=== PATIENT | female | born 1960 ===

== ENCOUNTER 2018-08-03 15:20 | Emergency (ER) | payer SELFPAY ==
[2018-08-03] MEDS ORDERED: Sodium Chloride 0.9% 1,000 ML IV ONE (15:50)
[2018-08-03] MEDS ORDERED: LORazepam 2 MG/ML SDV IVPUSH ONE (16:35)
[2018-08-03 16:43] LABS: CHLORIDE,CL 104 mmol/L (98-107); SODIUM,NA 140 mmol/L (136-145)
[2018-08-03] MEDS: diphenhydrAMINE 50 MG/ML SDV IVPUSH ONE ×2 (16:50→16:54)
[2018-08-03] MEDS ORDERED: Ketorolac 30 MG/ML SDV IVPUSH ONE (17:37)
[2018-08-03] MEDS ORDERED: Ondansetron 4 MG/2 ML SDV IVPUSH ONE (17:37)
[2018-08-03] MEDS ORDERED: Meperidine PF 25 MG/ML Syringe IVPUSH ONE (18:26)
--- NOTE | 2018-08-03 18:26 | EDM.PDOC ---
ED HPI GENERAL MEDICAL PROBLEM - General Chief Complaint: Cardiovascular Problem Stated Complaint: PAT CAME FROM CLINIC Time Seen by Provider: 08/03/18 18:24 Source of Information: Reports: Patient - History of Present Illness INITIAL COMMENTS - FREE TEXT/NARRATIVE: HISTORY AND PHYSICAL: History of present illness: []Patient presents with headache, she is post steroid injection for disc bulge in her neck yesterday she presents from the clinic as such She has a history of migraine she has no fever some mild nausea no vomiting chills sweats light and noise sensitivity 10 out of 10 headache diffuse nonradiating, on exam headache improved somewhat with palpation of neck she has no neck stiffness or meningeal signs no fever Review of systems: As per history of present illness and below otherwise all systems reviewed and negative. Past medical history: As per history of present illness and as reviewed below otherwise noncontributory. Surgical history: As per history of present illness and as reviewed below otherwise noncontributory. Social history: No reported history of drug or alcohol abuse. Family history: As per history of present illness and as reviewed below otherwise noncontributory. Physical exam: HEENT: Atraumatic, normocephalic, pupils reactive, negative for conjunctival pallor or scleral icterus, mucous membranes moist, throat clear, neck supple, nontender, trachea midline. No meningeal signs injection sites are not notable on the neck there is no redness warmth or open lesion and is normal appearing and nontender Lungs: Clear to auscultation, breath sounds equal bilaterally, chest nontender. Heart: S1S2, regular, negative for clicks, rubs, or JVD. Abdomen: Soft, nondistended, nontender. Negative for masses or hepatosplenomegaly. Negative for costovertebral tenderness. Pelvis: Stable nontender. Genitourinary: Deferred. Rectal: Deferred. Extremities: Atraumatic, negative for cords or calf pain. Neurovascular unremarkable. Neuro: Awake, alert, oriented. Cranial nerves II through XII unremarkable. Cerebellum unremarkable. Motor and sensory unremarkable throughout. Exam nonfocal. Diagnostics: [TBC CMP head CT no contrast UA] Therapeutics: [1 L normal saline bolus Toradol 30 mg IV Zofran 8 mg IV Ativan 1 mg IV ] declines Benadryl as she has a history of recurrent restless leg syndrome Demerol 25 mg IV Impression: [ headache ] Definitive disposition and diagnosis as appropriate pending reevaluation and review of above. right side of head Pain Score (Numeric/FACES): 10 - Related Data Allergies Allergy/AdvReac Type Severity Reaction Status Date / Time No Known Allergies Allergy Verified 08/03/18 15:33 Past Medical History - Past Surgical History Endocrine Surgical History: Reports: Other (See Below) Other Endocrine Surgeries/Procedures: thyroid tumor Musculoskeletal Surgical History: Reports: Other (See Below) Other Musculoskeletal Surgeries/Procedures:: wrist surgery-L, ankle ligament repair, lumbar fusion, spinal cord stimulator implant Social & Family History - Family History Family Medical History: Noncontributory - Tobacco Use Smoking Status *Q: Never Smoker Second Hand Smoke Exposure: No - Caffeine Use Caffeine Use: Reports: Soda - Recreational Drug Use Recreational Drug Use: No ED ROS GENERAL - Review of Systems Review Of Systems: See Below ED EXAM, GENERAL - Physical Exam Exam: See Below Course - Vital Signs Last Recorded V/S: Last Vital Signs Temp 98.7 F 08/03/18 15:34 Pulse 72 08/03/18 16:44 Resp 20 08/03/18 15:34 BP 193/115 H 08/03/18 16:44 Pulse Ox 100 08/03/18 16:44 - Orders/Labs/Meds Orders: Active Orders 24 hr Category Date Time Status EKG Documentation Completion [RC] STAT Care 08/03/18 15:47 Active Head wo Cont [CT] Stat Exams 08/03/18 15:47 Taken Meperidine [Demerol] Med 08/03/18 18:26 Once 25 mg IVPUSH ONETIME ONE Labs: Laboratory Tests 08/03/18 08/03/18 08/03/18 Range/Units 16:12 16:12 16:12 WBC 12.18 H (4.0-11.0) K/uL RBC 3.91 L (4.30-5.90) M/uL Hgb 12.5 (12.0-16.0) g/dL Hct 37.4 (36.0-46.0) % MCV 95.7 (80.0-98.0) fL MCH 32.0 (27.0-32.0) pg MCHC 33.4 (31.0-37.0) g/dL RDW Std Deviation 43.5 (28.0-62.0) fl RDW Coeff of Roro 13 (11.0-15.0) % Plt Count 371 (150-400) K/uL MPV 10.40 (7.40-12.00) fL Neut % (Auto) 83.5 H (48.0-80.0) % Lymph % (Auto) 9.4 L (16.0-40.0) % [place] % (Auto) 7.0 (0.0-15.0) % Eos % (Auto) 0.0 (0.0-7.0) % Baso % (Auto) 0.1 (0.0-1.5) % Neut # (Auto) 10.2 H (1.4-5.7) K/uL Lymph # (Auto) 1.2 (0.6-2.4) K/uL [place] # (Auto) 0.9 H (0.0-0.8) K/uL Eos # (Auto) 0.0 (0.0-0.7) K/uL Baso # (Auto) 0.0 (0.0-0.1) K/uL Nucleated RBC % 0.0 /100WBC Nucleated RBCs # 0 K/uL Sodium 140 (136-145) mmol/L Potassium 3.8 (3.5-5.1) mmol/L Chloride 104 (98-107) mmol/L Carbon Dioxide 25.5 (21.0-32.0) mmol/L BUN 17 (7.0-18.0) mg/dL Creatinine 1.0 (0.6-1.0) mg/dL Est Cr Clr Drug Dosing 52.95 mL/min Estimated GFR (MDRD) 56.9 ml/min Glucose 107 H (74-106) mg/dL Calcium 9.8 (8.5-10.1) mg/dL Total Bilirubin 0.3 (0.2-1.0) mg/dL AST 24 (15-37) IU/L ALT 33 (14-63) IU/L Alkaline Phosphatase 65 (46-116) U/L Troponin I < 0.050 (0.000-0.056) ng/mL Total Protein 7.9 (6.4-8.2) g/dL Albumin 4.2 (3.4-5.0) g/dL Globulin 3.7 H (2.0-3.5) g/dL Albumin/Globulin Ratio 1.1 L (1.3-2.8) Urine Color YELLOW Urine Appearance CLEAR Urine pH 6.0 (5.0-8.0) Ur Specific [place] <= 1.005 (1.001-1.035) Urine Protein NEGATIVE (NEGATIVE) mg/dL Urine Glucose (UA) NEGATIVE (NEGATIVE) mg/dL Urine Ketones NEGATIVE (NEGATIVE) mg/dL Urine Occult Blood NEGATIVE (NEGATIVE) Urine Nitrite NEGATIVE (NEGATIVE) Urine Bilirubin NEGATIVE (NEGATIVE) Urine Urobilinogen 0.2 (<2.0) EU/dL Ur Leukocyte Esterase TRACE (NEGATIVE) Urine RBC 0-1 (0-2/HPF) Urine WBC 1-2 (0-5/HPF) Ur Epithelial Cells RARE (NONE-FEW) Urine Bacteria RARE (NEGATIVE) Meds: Medications Discontinued Medications Generic Name Dose Route Start Last Admin Trade Name Freq PRN Reason Stop Dose Admin Diphenhydramine HCl 50 mg 08/03/18 16:35 08/03/18 16:54 Benadryl IVPUSH 08/03/18 16:36 Not Given ONETIME ONE Sodium Chloride 1,000 mls @ 999 mls/hr 08/03/18 15:50 08/03/18 16:10 Normal Saline IV 08/03/18 16:50 999 mls/hr STAT ONE Administration Ketorolac Tromethamine 30 mg 08/03/18 17:37 08/03/18 18:15 Toradol IVPUSH 08/03/18 17:38 30 mg ONETIME ONE Administration Lorazepam 1 mg 08/03/18 16:35 08/03/18 16:50 Ativan IVPUSH 08/03/18 16:36 1 mg ONETIME ONE Administration Ondansetron HCl 8 mg 08/03/18 17:37 08/03/18 18:15 Zofran IVPUSH 08/03/18 17:38 8 mg ONETIME ONE Administration Departure - Departure Time of Disposition: 18:27 Disposition: Home, Self-Care 01 Condition: Fair Clinical Impression: Headache Forms: ED Department Discharge Additional Instructions: Follow-up with primary care as needed for pain clinic as needed Return if new concerning symptoms develop The following information is given to patients seen in the emergency department who are being discharged to home. This information is to outline your options for follow-up care. We provide all patients seen in our emergency department with a follow-up referral. The need for follow-up, as well as the timing and circumstances, are variable depending upon the specifics of your emergency department visit. If you don't have a primary care physician on staff, we will provide you with a referral. We always advise you to contact your personal physician following an emergency department visit to inform them of the circumstance of the visit and for follow-up with them and/or the need for any referrals to a consulting specialist. The emergency department will also refer you to a specialist when appropriate. This referral assures that you have the opportunity for follow-up care with a specialist. All of these measure are taken in an effort to provide you with optimal care, which includes your follow-up. Under all circumstances we always encourage you to contact your private physician who remains a resource for coordinating your care. When calling for follow-up care, please make the office aware that this follow-up is from your recent emergency room visit. If for any reason you are refused follow-up, please contact the [facility] emergency department at and asked to speak to the emergency department charge nurse. - My Orders Last 24 Hours: My Active Orders 08/03/18 15:47 EKG Documentation Completion [RC] STAT Head wo Cont [CT] Stat 08/03/18 18:26 Meperidine [Demerol] 25 mg IVPUSH ONETIME ONE - Assessment/Plan Last 24 Hours: My Active Orders 08/03/18 15:47 EKG Documentation Completion [RC] STAT Head wo Cont [CT] Stat 08/03/18 18:26 Meperidine [Demerol] 25 mg IVPUSH ONETIME ONE
--- NOTE | 2018-08-04 10:20 | CT ---
EXAM DATE: 08/03/18 PATIENT'S AGE: 57 Patient: STACIE HAYNES Facility: [place], [place] Site . Site : 1960 Study: CT Head [id number] 4:52:10 PM Ordering Physician: Geremias Messina Final Report: INDICATION: Pain. TECHNIQUE: CT images were acquired from foramen magnum to the vertex without contrast. FINDINGS: The lateral 3rd and 4th ventricles normal in size and shape. No evidence of acute hemorrhage no mass effect. No shift of midline. No areas of abnormal brain density. No posterior fossa hemorrhage or mass effect. The bony calvarium is unremarkable. The included paranasal sinuses are clear. IMPRESSION: Normal CT brain without contrast. Please note that all CT scans at this facility use dose modulation, iterative reconstruction, and/or weight-based dosing when appropriate to reduce radiation dose to as low as reasonably achievable. Dictated by Sen Mitchell MD @ Aug 03 2018 5:32PM (Electronic Signature) Report Signed by Proxy. MTDD
== END 2018-08-03 20:00 | disposition home or self-care (01) ==
LOC: MW.ED 15:20
DX: R51 Headache (principal)
CPT/HCPCS: 36415; 70450; 80053; 81001; 84484; 85025; 93005; 96361; 96374; 96375; 99284; J1885; J2060; J2175; J2405; J7040; 99283; J1200